=== PATIENT | male | born 1980 | race Caucasian/White ===

== ENCOUNTER 2019-07-19 18:38 | Outpatient (REF) | payer BC, SELFPAY ==
[2019-07-19 21:34] LABS: HGB 14.5 g/dL (13.5-17.5); Mean Corpuscular Hemoglobin 29.1 pg (27.0-33.0); Mean Corpuscular Volume 88.2 fL (80-95); Mean Platelet Volume 9.5 fL (8.0-11.0); Platelet Count 317 x1000/uL (130-400); RBC 4.99 m/cumm (4.50-6.00); RBC Distribution Width 12.8 % (11.8-14.1); White Blood Cell Count 7.45 k/cumm (4.4-10.8)
[2019-07-19 21:46] LABS: Hemoglobin A1C 5.7 % (4.5-6.2)
[2019-07-19 22:06] LABS: ALT 42 U/L (16-63); AST 18 U/L (15-37); Albumin 4.4 g/dL (3.4-5.0); Alkaline Phosphatase 84 U/L (46-116); Anion Gap 10.4 mmol/L (3-11); BUN 18 mg/dL (7-18); Bilirubin, Total 0.4 mg/dL (0.2-1.0); CO2 29.6 mmol/L (21.0-32.0); CREATININE 1.04 mg/dL (0.70-1.30); Calcium 9.4 mg/dL (8.5-10.1); Calculated LDL 173 mg/dL; Chloride 103 mmol/L (98-107); Cholesterol 260 mg/dL (50-200); Glucose 85 mg/dL (70-100); HDL Cholesterol 61 mg/dL (40-60); Potassium 4.3 mmol/L (3.5-5.1); Sodium 143 mmol/L (136-145); Total Protein 7.6 g/dL (6.4-8.2); Triglyceride 131 mg/dL (30-150)
[2019-07-21 13:44] LABS: Ethyl Glucuronide Screen, U Presumptive Positive ng/mL
[2019-07-23 10:13] LABS: Hepatitis C Ab w Rflx HCV PCR Negative (NEGAT)
[2019-07-23 10:56] LABS: HIV-1/2 Ag & Ab Screen Negative (NEGAT)
== END 2019-07-19 18:58 ==
LOC: NCHCN 18:38
PROVIDERS: PCP Family Medicine; Visit Provider Family Medicine
DX: Z11.3 Encounter for screening for infections with a predominantly sexual mode of transmission (principal); Z13.1 Encounter for screening for diabetes mellitus; Z13.220 Encounter for screening for lipoid disorders; Z11.59 Encounter for screening for other viral diseases; F10.19 Alcohol abuse with unspecified alcohol-induced disorder
CPT/HCPCS: 80053; 80061; 80307; 85027; 86803; 87389; 83036

== ENCOUNTER 2019-07-26 15:50 | Outpatient (REF) | payer BC, SELFPAY ==
[2019-07-28 15:11] LABS: Ethyl Glucuronide Screen, U Presumptive Positive ng/mL
== END 2019-07-26 16:10 ==
LOC: NCHCN 15:50
PROVIDERS: PCP Family Medicine; Visit Provider Family Medicine
DX: F10.19 Alcohol abuse with unspecified alcohol-induced disorder (principal)
CPT/HCPCS: 80307

== ENCOUNTER 2020-07-16 13:04 | Outpatient (REF) | payer BC, SELFPAY | END 2020-07-16 13:24 | LOC: LBN 13:04 | PROVIDERS: PCP Family Medicine; Visit Provider Urology | DX: N36.8 Other specified disorders of urethra (principal); Z93.59 Other cystostomy status; S32.9XXS Fracture of unspecified parts of lumbosacral spine and pelvis, sequela | CPT/HCPCS: 87086 ==

== ENCOUNTER 2020-07-16 13:35 | Outpatient (REF) | payer OTHER, SELFPAY ==
[2020-07-16 22:31] LABS: HCT 47.4 % (40.0-50.0); HGB 15.7 g/dL (13.5-17.5); MCH 28.1 pg (27.0-33.0); MCHC 33.1 % (32.0-36.0); MCV 84.8 fL (80-95); MPV 9.9 fL (8.0-11.0); Platelet Count 338 10^3/uL (130-400); RBC 5.59 10^6/uL (4.36-5.78); RDW 14.4 % (11.8-14.1)
[2020-07-16 22:38] LABS: Anion Gap 8.2 mmol/L (3-11); BUN 17 mg/dL (7-18); CO2 28.8 mmol/L (21.0-32.0); CREATININE 0.94 mg/dL (0.70-1.30); Calcium 9.3 mg/dL (8.5-10.1); Chloride 101 mmol/L (98-107); Glucose 98 mg/dL (74-106); Potassium 4.2 mmol/L (3.5-5.1); Sodium 138 mmol/L (136-145)
== END 2020-07-16 13:55 ==
LOC: LBN 13:35
PROVIDERS: PCP Family Medicine; Visit Provider Urology
DX: N36.8 Other specified disorders of urethra (principal); Z93.59 Other cystostomy status; Z01.818 Encounter for other preprocedural examination
CPT/HCPCS: 80048; 85027; 87086

== ENCOUNTER 2020-07-18 22:58 | Outpatient (REF) | payer OTHER, SELFPAY | END 2020-07-18 23:18 | LOC: LBN 22:58 | PROVIDERS: PCP Family Medicine; Visit Provider Urology | DX: R82.998 Other abnormal findings in urine (principal); Z01.818 Encounter for other preprocedural examination | CPT/HCPCS: 87086 ==

== ENCOUNTER 2020-10-02 19:28 | Outpatient (REF) | payer OTHER, SELFPAY ==
[2020-10-04 16:41] LABS: COVID-19 RT-PCR Result NEGATIVE (Negative)
== END 2020-10-02 19:48 ==
LOC: NCHCN 19:28
PROVIDERS: PCP Family Medicine; Visit Provider Family Medicine
DX: Z01.818 Encounter for other preprocedural examination (principal)
CPT/HCPCS: U0003

== ENCOUNTER 2020-10-03 20:48 | Outpatient (REF) | payer OTHER, SELFPAY | END 2020-10-03 21:08 | LOC: NCHCN 20:48 | PROVIDERS: PCP Family Medicine; Visit Provider Registered Nurse | DX: R33.9 Retention of urine, unspecified (principal) | CPT/HCPCS: 87086 ==

== ENCOUNTER 2021-03-06 18:38 | Outpatient (REF) | payer OTHER, SELFPAY ==
[2021-03-08 10:54] LABS: COVID-19 RT-PCR UVMMC Result Negative (Negative)
== END 2021-03-06 18:39 | disposition home or self-care (01) ==
LOC: NCHCN 18:38
PROVIDERS: PCP Family Medicine; Visit Provider Family Medicine
DX: Z20.822 Contact with and (suspected) exposure to COVID-19 (principal); J06.9 Acute upper respiratory infection, unspecified
CPT/HCPCS: U0003

== ENCOUNTER 2021-07-28 14:28 | Outpatient (REF) | payer SELFPAY | END 2021-07-28 14:29 | disposition home or self-care (01) | LOC: LBN 14:28 | PROVIDERS: PCP Family Medicine; Visit Provider Family Medicine | DX: Z01.818 Encounter for other preprocedural examination (principal) | CPT/HCPCS: 87086 ==

== ENCOUNTER 2021-09-15 14:32 | Outpatient (REF) | payer SELFPAY ==
[2021-09-17 10:15] LABS: COVID-19 RT-PCR UVMMC Result Negative (Negative)
== END 2021-09-15 14:33 | disposition home or self-care (01) ==
LOC: NCHCN 14:32
PROVIDERS: PCP Family Medicine; Visit Provider Family Medicine
DX: Z20.822 Contact with and (suspected) exposure to COVID-19 (principal)
CPT/HCPCS: U0003

== ENCOUNTER 2021-11-27 18:29 | Outpatient (REF) | payer OTHER, SELFPAY | END 2021-11-27 18:30 | disposition home or self-care (01) | LOC: LBN 18:29 | PROVIDERS: PCP Family Medicine; Visit Provider Urology | DX: Z01.818 Encounter for other preprocedural examination (principal) | CPT/HCPCS: 87086 ==

== ENCOUNTER 2022-03-05 01:06 | Outpatient (REF) | payer BC, SELFPAY ==
[2022-03-05 14:42] LABS: Bilirubin Negative (Negative); Blood Negative (Negative); Clarity Clear (Clear); Glucose Negative (Negative); Ketones Negative (Negative); Leukocyte Esterase Negative (Negative); Nitrite Negative (Negative); Specific Gravity 1.025 (1.005-1.025); Urobilinogen 0.2 EU/dL (Up TO 0.2); pH 6.5 (5-8)
== END 2022-03-05 01:07 | disposition home or self-care (01) ==
LOC: LBN 01:06
PROVIDERS: PCP Family Medicine; Visit Provider Urology
DX: N39.3 Stress incontinence (female) (male) (principal)
CPT/HCPCS: 81003

== ENCOUNTER 2022-05-25 14:10 | Outpatient (REF) | payer BC, SELFPAY | END 2022-05-25 14:11 | disposition home or self-care (01) | LOC: LBN 14:10 | PROVIDERS: PCP Family Medicine; Visit Provider Urology | DX: N39.3 Stress incontinence (female) (male) (principal); Z01.818 Encounter for other preprocedural examination | CPT/HCPCS: 87086 ==